=== PATIENT | male | born 1995 | race Caucasian/White ===

== ENCOUNTER 2016-08-16 13:15 | Observation (INO) | payer BC, OTHER ==
[2016-08-16 14:08] LABS: % IMMATURE GRANULYOCYTES 0.5 % (0.0-1.1); ABSOLUTE IMMATURE GRANULOCYTES 0.08 10^3/uL (0.00-0.10); ADD DIFF? NO; ADD MORPH? NO; ADD SCAN? NO; ATYPICAL LYMPHOCYTE FLAG 30 (0-99); FRAGMENT RBC FLAG 0 (0-99); HEMATOCRIT 49.7 % (40.0-51.0); HEMOGLOBIN 17.6 g/dL (13.7-17.5); LEFT SHIFT FLG 10 (0-99); LIPEMIA HEMOLYSIS FLAG 90 (0-99); MEAN CELL HEMOGLOBIN 32.1 pg (27.9-34.1); MEAN CELL HEMOGLOBIN CONCENTR. 35.4 g/dL (32.4-36.7); MEAN CELL VOLUME 90.7 fL (81.5-99.8); MEAN PLATELET VOLUME 10.8 fL (8.7-11.7); PLATELET CLUMPS FLAG 0 (0-99); PLATELET COUNT 169 10^3/uL (150-400); RED BLOOD CELL COUNT 5.48 10^6/uL (4.40-6.38)
[2016-08-16 14:20] LABS: ANION GAP 16 mEq/L (8-16); CALCIUM 8.9 mg/dL (8.5-10.4); CARBON DIOXIDE 21 mEq/l (22-31); CHLORIDE 103 mEq/L (97-110); CREATININE 0.8 mg/dL (0.7-1.3); GLOMERULAR FILTRATION RATE > 60; GLUCOSE 79 mg/dL (70-100); POTASSIUM 4.2 mEq/L (3.5-5.2); SODIUM 140 mEq/L (134-144)
--- NOTE | 2016-08-16 14:22 | DX ---
Chest, PA and lateral. History: Cough and fever. Findings: Heart size is within normal limits. Peribronchial wall thickening is seen bilaterally. Opac ification is seen anteriorly in the right upper lobe and probable superior segment of left lower lobe . No evidence for pleural effusion. No significant osseous abnormality. Impression: Underlying bronchitis with probable pneumonia in the right upper lobe and left lower lobe .
[2016-08-16] MEDS ORDERED: ACETAMINOPHEN 325 MG TAB PO PRN (14:40)
[2016-08-16] MEDS ORDERED: ONDANSETRON 4 MG/2 ML VIAL IVP PRN (14:40)
[2016-08-16] MEDS ORDERED: NS 1,000 ML IV ONE (14:40)
[2016-08-16] MEDS ORDERED: ONDANSETRON DISINTEGRATING 4 MG TAB PO PRN (14:40)
[2016-08-16] MEDS ORDERED: NS 1,000 ML IV SCH (14:45)
--- NOTE | 2016-08-16 15:08 | GHP ---
[f rep st] HISTORY AND PHYSICAL DATE OF ADMISSION: 08/16/2016 DATE OF EVALUATION: 08/16/2016 CHIEF COMPLAINT: Influenza. HISTORY OF PRESENT ILLNESS: This is a 21-year-old man who presents with ongoing cough and decreased urination. Symptoms started 5 days prior to arrival, mostly including cough with a little bit of sin us congestion. He has had fevers and myalgias as well. He was seen at urgent care 3 days ago, start ed on Tamiflu. He says that he has felt very poorly since. Over the weekend, he drank a significant amount of water but has had very little urination. He says, "A few drops through the weekend." He was then re-seen at urgent care again today who then referred him to the emergency department for a f urther workup. Emergency department confirmed mild hypoxia, as well as multifocal pneumonia on x-ray . PAST MEDICAL/SURGICAL HISTORY: None. MEDICATIONS: Please see medication reconciliation. ALLERGIES: None. FAMILY HISTORY: Denies any lung disease. SOCIAL HISTORY: Works at a [employer]. He does not smoke. He did have a co-worker who possibly h ad influenza. REVIEW OF SYSTEMS: A 10-point review of systems is conducted and is negative except per HPI. PHYSICAL EXAMINATION: VITAL SIGNS: Blood pressure is 135/85, heart rate is 103, respiration rate 20 , saturating at 87% on room air. Temperature is 37. GENERAL: The patient is a pleasant man who omar ears mildly uncomfortable, otherwise no acute distress. HEENT: Shows him to be normocephalic, atrau matic. CARDIOVASCULAR: Exam shows regular rate and rhythm. No murmurs, rubs, or gallops. RESPIRAT ORY: Exam shows him to be in no respiratory distress. Breathing comfortably. He has mild rales on the right side. ABDOMEN: Soft, nontender, nondistended. SKIN: Exam shows no rash. : Exam show s no Delong. NEUROLOGIC: Exam shows him to be alert and oriented x3. He is moving all extremities. PSYCHIATRIC: Exam shows normal mood and affect. LABS: White count is 14.5, platelets are 169. Creatinine is 0.8, bicarb is 21. DATA: 1. I discussed this with Jarvis Ellis. Will admit to the ICU. 2. Chest x-ray, which I personally viewed and interpreted shows multiple opacities concerning for mu ltifocal pneumonia. Possible bronchitis. IMPRESSION/PLAN: 1. Acute influenza A infection with hypoxia multifocal pneumonia: He has a neutrophilic predominant white count. We will treat for secondary bacterial pneumonia with Levaquin. Agree with continuing Tamiflu for now. We will monitor him on pulse ox. 2. Decreased urination: Fortunately, creatinine is normal. He is getting bladder scanned right now . I suspect that this is due to dehydration. Will provide aggressive fluid resuscitation. Recheck his creatinine in the morning. 3. Acute hypoxia: Due to influenza. Will follow throughout the night. /[id number]/MODL
--- NOTE | 2016-08-16 15:21 | EDPHY ---
H & P Stated Complaint: dx w/ FLU A, dehydrated HPI/ROS: Chief complaint: Influenza A, worsening History of present illness: This is a 21-year-old male who presents to the emergency department for worsening symptoms after being diagnosed with influenza A recently. Patient reports getting sick last week. He was diagnosed at Urgent Care with influenza a Tuesday. He was started on an inhaler , Flonase and Tamiflu. Despite this he feels symptoms are getting worse. He primarily reports a worsening cough. In addition he states he has now developed diarrhea. He is also concerned as he states he has not urinated in 4 days. He returned to urgent care today for re-evaluation and was sent here. Review of systems: A 10 point review of systems was obtained and other than described above was negative - Medical/Surgical History Hx Asthma: No Hx Chronic Respiratory Disease: No Hx Diabetes: No Hx Cardiac Disease: No Hx Renal Disease: No Hx Cirrhosis: No Hx Alcoholism: No Hx HIV/AIDS: No Hx Splenectomy or Spleen Trauma: No Other PMH: denies - Social History Smoking Status: Never smoked - Physical Exam Exam: General Appearance: Alert, nontoxic. Eyes: Pupils equal and round no pallor or injection. ENT, Mouth: Mucous membranes moist. Respiratory: There are no retractions, lungs are clear to auscultation. Cardiovascular: Regular rate and rhythm. Gastrointestinal: Abdomen is soft and non tender, no masses, bowel sounds normal. Neurological: Alert and oriented. Strength and sensation intact and symmetrical. No meningismus. Skin: Warm and dry, no rashes. Musculoskeletal: Neck is supple non tender. Extremities are symmetrical, full range of motion. Psychiatric: Patient is oriented X 3, there is no agitation. Constitutional: Initial Vital Signs Temperature (C) 37 C 08/16/16 13:16 Heart Rate 103 H 08/16/16 13:16 Respiratory Rate 20 08/16/16 13:16 Blood Pressure 135/85 H 08/16/16 13:16 O2 Sat (%) 87 L 08/16/16 13:16 O2 Delivery Mode Room Air Allergies/Adverse Reactions: No Known Allergies Allergy (Unverified 08/16/16 13:18) Home Medications: Medication Instructions Recorded Albuterol 08/16/16 Flonase Allergy Relief 08/16/16 NK [No Known Home Meds] 08/16/16 Medical Decision Making ED Course/Re-evaluation: Patient is discussed with my primary supervising physician Dr. Deedee Jennings. Patient presents to the emergency department for worsening symptoms after being diagnosed with influenza A. Ultimately patient also appears to have a multi lobe pneumonia. Blood studies do reveal a leukocytosis. Normal lactate. Blood cultures are obtained. Patient started on Levaquin. He is admitted to the hospitalist service for further evaluation and care. The plan has been discussed with the patient who voiced understanding and agreement with it. Differential Diagnosis: Included but not limited to influenza, pneumonia, bronchitis - Data Points Laboratory Results: Laboratory Results 08/16/16 13:55 08/16/16 13:55 08/16/16 13:55 WBC 14.56 H 10^3/uL (3.80-9.50) RBC 5.48 10^6/uL (4.40-6.38) Hgb 17.6 H g/dL (13.7-17.5) Hct 49.7 % (40.0-51.0) MCV 90.7 fL (81.5-99.8) MCH 32.1 pg (27.9-34.1) MCHC 35.4 g/dL (32.4-36.7) RDW 13.0 % (11.5-15.2) Plt Count 169 10^3/uL (150-400) MPV 10.8 fL (8.7-11.7) Neut % (Auto) 85.4 H % (39.3-74.2) Lymph % (Auto) 7.3 L % (15.0-45.0) Hudson % (Auto) 6.3 % (4.5-13.0) Eos % (Auto) 0.2 L % (0.6-7.6) Baso % (Auto) 0.3 % (0.3-1.7) Nucleat RBC Rel Count 0.0 % (0.0-0.2) Absolute Neuts (auto) 12.44 H 10^3/uL (1.70-6.50) Absolute Lymphs (auto) 1.06 10^3/uL (1.00-3.00) Absolute Monos (auto) 0.91 H 10^3/uL (0.30-0.80) Absolute Eos (auto) 0.03 10^3/uL (0.03-0.40) Absolute Basos (auto) 0.04 10^3/uL (0.02-0.10) Absolute Nucleated RBC 0.00 10^3/uL (0-0.01) Immature Gran % 0.5 % (0.0-1.1) Immature Gran # 0.08 10^3/uL (0.00-0.10) Sodium 140 mEq/L (134-144) Potassium 4.2 mEq/L (3.5-5.2) Chloride 103 mEq/L (97-110) Carbon Dioxide 21 L mEq/l (22-31) Anion Gap 16 mEq/L (8-16) BUN 12 mg/dL (7-23) Creatinine 0.8 mg/dL (0.7-1.3) Estimated GFR > 60 Glucose 79 mg/dL (70-100) Calcium 8.9 mg/dL (8.5-10.4) Medications Given: Discontinued Medications Sodium Chloride (Ns) 1,000 mls @ 3,000 mls/hr IV ONCE ONE Stop: 08/16/16 14:59 Last Admin: 08/16/16 15:05 Dose: 1,000 mls Levofloxacin (Levaquin) 750 mg PO EDNOW ONE PRN Reason: Protocol Stop: 08/16/16 14:29 Last Admin: 08/16/16 15:05 Dose: 750 mg Departure - Departure Disposition: [facility] Inpatient Acute Clinical Impression: Influenza due to influenza virus, type A, human Pneumonia Qualifiers: Pneumonia type: due to unspecified organism Laterality: bilateral Lung location : unspecified part of lung Qualifier Code: (J18.9) Pneumonia, unspecified organism Condition: Good
[2016-08-16] MEDS: OSELTAMIVIR PHOSPHATE 75 MG CAP PO SCH (18:15)
[2016-08-17] MEDS: TEMAZEPAM 15 MG CAP PO PRN ×2 (00:35→01:47)
[2016-08-17] MEDS: GUAIFENESIN/DM 10 ML UDCUP PO PRN ×2 (00:35→11:49)
[2016-08-17 06:12] LABS: % IMMATURE GRANULYOCYTES 0.4 % (0.0-1.1); ABSOLUTE IMMATURE GRANULOCYTES 0.02 10^3/uL (0.00-0.10); ADD DIFF? NO; ADD MORPH? NO; ADD SCAN? NO; ATYPICAL LYMPHOCYTE FLAG 60 (0-99); FRAGMENT RBC FLAG 0 (0-99); HEMATOCRIT 44.5 % (40.0-51.0); HEMOGLOBIN 15.4 g/dL (13.7-17.5); LEFT SHIFT FLG 0 (0-99); LIPEMIA HEMOLYSIS FLAG 90 (0-99); MEAN CELL HEMOGLOBIN 32.1 pg (27.9-34.1); MEAN CELL HEMOGLOBIN CONCENTR. 34.6 g/dL (32.4-36.7); MEAN CELL VOLUME 92.7 fL (81.5-99.8); PLATELET CLUMPS FLAG 0 (0-99); PLATELET COUNT 117 10^3/uL (150-400); RED CELL DISTRIBUTION WIDTH 12.9 % (11.5-15.2)
[2016-08-17 06:54] LABS: ANION GAP 10 mEq/L (8-16); CALCIUM 8.3 mg/dL (8.5-10.4); CARBON DIOXIDE 21 mEq/l (22-31); CHLORIDE 108 mEq/L (97-110); CREATININE 0.7 mg/dL (0.7-1.3); GLOMERULAR FILTRATION RATE > 60; GLUCOSE 77 mg/dL (70-100); POTASSIUM 4.5 mEq/L (3.5-5.2); SODIUM 139 mEq/L (134-144); SPECIMEN HEMOLYSIS 105
[2016-08-17 08:04] VITALS: BP 120/95; PULSE 86; RESP 18; TEMP 98.4; O2SAT 92
[2016-08-17] MEDS ORDERED: OSELTAMIVIR PHOSPHATE 75 MG CAP PO SCH (09:00)
[2016-08-17] MEDS: OSELTAMIVIR PHOSPHATE 75 MG CAP PO SCH (09:15)
--- NOTE | 2016-08-17 13:11 | GDS ---
[f rep st] DISCHARGE SUMMARY DISCHARGE DIAGNOSES: 1. Influenza A. 2. Community-acquired pneumonia, bacterial versus viral. 3. Acute hypoxemic respiratory failure. HOSPITAL COURSE AND STAY BY PROBLEM: Influenza A with hypoxemia and multifocal pneumonia: The patie dinorah was placed on observation, where he was started on levofloxacin and continued on his course of Tamez iflu. On hospital day #1, the patient tells me he feels much better. He is no longer having any fev ers or chills. His oxygen saturations are above 90% on room air. He does have a productive cough, w hich is improving. He is tolerating a regular diet. The patient tells me that he feels much better and would like to go home. PHYSICAL EXAM ON DAY OF DISCHARGE: VITAL SIGNS: Blood pressure 120/95, pulse of 86, respiratory rat e 18, O2 sat 92% on room air, temperature afebrile. GENERAL: No acute distress. HEART: S1, S2. L UNGS: Clear. No wheezes, rales, or rhonchi. ABDOMEN: Soft. EXTREMITIES: No edema. PERTINENT LABS AND STUDIES: Blood cultures were drawn, which are currently pending. Chest x-ray [facility] on 08/16/2016 was consistent with a multifocal pneumonia with infiltrates in the right upper lobe a nd left lower lobe. DISCHARGE MEDICATIONS: Please refer to discharge medication reconciliation in [facility] for full deta ils. Below is a preliminary list. New medications on hospital discharge: Levofloxacin 750 mg p.o. daily to complete a 5-day course. All other home medications were continued at his usual home dosages, including Tamiflu which he shoul d continue as directed to finish a 5-day course. DISCHARGE INSTRUCTIONS: The patient was discharged from the hospital, where he should follow up with his primary care provider in the next 1-2 weeks for routine hospital followup. He should seek [facility] medical attention if he develops any recurrent fevers or worsening shortness of breath, coug h, or signs of worsening pneumonia. /[id number]/MODL
== END 2016-08-17 12:39 | disposition home or self-care (01) ==
LOC: F1N 15:30
PROVIDERS: ADMIT Student in an Organized Health Care Education/Training Program; ATTEND Student in an Organized Health Care Education/Training Program
DX: J09.X2 Influenza due to identified novel influenza A virus with other respiratory manifestations (principal); J18.9 Pneumonia, unspecified organism; J96.01 Acute respiratory failure with hypoxia
CPT/HCPCS: 71020; 99285; G0378